=== PATIENT | male | born 2000 | race Two or more races ===

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

== ENCOUNTER 2022-07-02 20:42 | Emergency (ER) | payer OTHER ==
[~2022-07-02] VITALS: Ht 188 cm; Wt 32.2 kg
[2022-07-02 21:26] VITALS: BP 131/57
--- NOTE | 2022-07-02 21:26 | NUR ---
DARYL FROM HOME C/O SOB SINCE LAST NIGHT HX ASTHMA, RAN OUT OF INHALER; SATTING 97% ON R/A
--- NOTE | 2022-07-02 21:37 | NUR ---
CALLED RT FOR BREATHING TX
[2022-07-02] MEDS ORDERED: predniSONE 20 MG TABLET ONE (21:39)
[2022-07-02] MEDS ORDERED: IPRATROPIUM NEB FS 0.5 MG/2.5 ML AMPUL.NEB ONE (21:45)
[2022-07-02] MEDS ORDERED: ALBUTEROL FS 2.5 MG/3 ML VIAL.NEB ONE (21:45)
--- NOTE | 2022-07-02 21:48 | NUR ---
RT AT PT'S BEDSIDE FOR BREATHING TX
[2022-07-02] MEDS ORDERED: predniSONE 20 MG TABLET PO ONE (22:00)
[2022-07-02] MEDS ORDERED: ALBUTEROL FS 2.5 MG/3 ML VIAL.NEB NEB ONE (22:00)
[2022-07-02] MEDS ORDERED: IPRATROPIUM NEB FS 0.5 MG/2.5 ML AMPUL.NEB NEB ONE (22:00)
[2022-07-02] MEDS ORDERED: ALBU18HF2 INH (23:00)
[2022-07-02] MEDS ORDERED: PRED20TA PO (23:00)
--- NOTE | 2022-07-02 23:06 | NUR ---
Patient discharged to home in stable condition. Rx and Written and verbal after care instructions given. Patient verbalizes understanding of instruction.
== END 2022-07-02 23:06 | disposition home or self-care (01) ==
LOC: ER 20:42
DX: J45.909 Unspecified asthma, uncomplicated (principal)
CPT/HCPCS: 99285; 93005; 94644; J7512; A4223